=== PATIENT | male | born 1975 | race Caucasian/White ===

== ENCOUNTER → 2018-08-09 | Outpatient (CLI) | payer OTHER | END | disposition home or self-care (01) | LOC: LAB 08:04 | PROVIDERS: ATTEND Physician Assistant | DX: Z13.220 Encounter for screening for lipoid disorders (principal); Z12.5 Encounter for screening for malignant neoplasm of prostate; M25.511 Pain in right shoulder; G89.29 Other chronic pain; D72.820 Lymphocytosis (symptomatic); Z98.52 Vasectomy status ==